=== PATIENT | male | born 1990 | race Caucasian/White ===

== ENCOUNTER 2023-06-30 09:16 | Emergency (ER) | payer OTHER, SELFPAY ==
[2023-06-30] VITALS (7 sets, daily range): BP systolic 119–137; BP diastolic 73–87; PULSE 67–82; RESP 12–22; O2SAT 98–100; BMI 26.9
--- NOTE | 2023-06-30 09:26 | DI.RAD.S_ITS ---
PROCEDURE: XR CHEST 1V INDICATIONS: chest pain TECHNIQUE: One view of the chest was acquired. COMPARISON: None. FINDINGS: Surgical changes and devices: None. Lungs and pleura: Lungs are clear. No pleural effusions or pneumothorax. Mediastinum: Mediastinal contours appear normal. Heart size is normal. Bones and chest wall: No suspicious bony lesions. Overlying soft tissues appear unremarkable. IMPRESSION: No acute cardiopulmonary abnormality is seen. Dictated by: Reinaldo De La O M.D. on 06/30/2023 at 8:42 Approved by: Reinaldo De La O M.D. on 06/30/2023 at 8:42
[2023-06-30 09:49] LABS: PTT Partial Thromboplastin Tim 37 SECONDS (25.1-36.5)
[2023-06-30 09:50] LABS: Add Manual Diff / Slide Review NO; Basophils Absolute Auto 100 /uL (0-100); Basophils Percent Auto 0.9 % (0-2); Eosinophils Absolute Auto 100 /uL (0-450); Eosinophils Percent Auto 1.7 % (2-4); Hematocrit 42.7 % (41-53); Lymphocytes Absolute Auto 2500 /uL (1100-4500); Lymphocytes Percent Auto 33.5 % (25-40); Mean Corpuscular HGB Conc 35.1 % (30-36); Mean Corpuscular Hemoglobin 29.5 PG (26-34); Mean Corpuscular Volume 84.1 fL (80-100); Monocytes Absolute Auto 500 /uL (0-900); Monocytes Percent Auto 7.4 % (3-14); Neutrophils Absolute Auto 4200 /uL (1500-7000); Neutrophils Percent Auto 56.5 % (50-75); Platelet Count 249 X10^3/uL (150-400); Red Blood Cell Count 5.08 X10^6/uL (4.5-5.9); Red Cell Distribution Width 13.1 % (11.6-14.8); White Blood Cell Count 7.4 X10^3/uL (4.5-11.0)
--- NOTE | 2023-06-30 09:56 | ED_ITS ---
HPI - Chest Pain General Chief Complaint: Chest Pain Stated Complaint: t-1 heart palpatations Time Seen by Provider: 06/30/23 09:18 Source: patient Mode of arrival: Ambulatory Limitations: no limitations History of Present Illness HPI narrative: 33-year-old male with no reported past medical history presents with 1 week of intermittent palpitations. Patient states that he has been seen twice by medics on [facility] for these palpitations, but no abnormalities were found. He states that yesterday they seemed really intense any felt faint like he was going to pass out, so decided to present today for evaluation. He states that he recently stopped drinking alcohol and using cannabis. Denies family history of heart disease or thyroid disease. Related Data Previous Rx's Medication Instructions Recorded diclofenac sodium 1 % topical gel 4 g topical QID #100 grams 09/08/22 (Voltaren Arthritis Pain) Allergies Allergy/AdvReac Type Severity Reaction Status Date / Time No Known Drug Allergies Allergy Unverified 03/15/23 16:17 Review of Systems Review of Systems Narrative: Negative except as noted above Patient History Surgical History Broken wrist (~07/2007) Social History Smoking Status: Former smoker Smoking Status: Former smoker alcohol intake frequency: 0-2 drinks per day Substance Use Type: does not use Exam Initial Vital Signs Initial Vital Signs: Vital Signs Pulse Rate 82 06/30/23 09:24 Pulse Oximetry 100 06/30/23 09:24 Const: Awake, alert, no acute distress, nontoxic appearing Cardiac: regular rate, regular rhythm RESP: unlabored, clear bilaterally, no wheezing GI: Soft, nontender, nondistended, no rebound, no guarding MSK: Atraumatic, full range of motion, pulses equal Skin: Warm, Dry, intact, no rashes Neuro: AO x3, CN II-XII grossly intact, moves all extremities Course Orders Ordered: Discontinued Medications Aspirin (Aspirin 81 Mg Chew Tab) 324 mg PO NOW ONE Stop: 06/30/23 09:26 Last Admin: 06/30/23 10:39 Dose: Not Given Documented By: RLS Vital Signs Vital signs: Vital Signs - 8 hr 06/30/23 09:24 06/30/23 09:25 06/30/23 09:25 Pulse Rate 82 74 Respiratory Rate 18 Blood Pressure 124/73 Pulse Oximetry 100 100 Oxygen Delivery Method Room Air 06/30/23 09:30 06/30/23 09:30 06/30/23 09:34 Pulse Rate 77 72 Respiratory Rate 17 12 Blood Pressure 137/87 137/87 Pulse Oximetry 100 100 Oxygen Delivery Method Room Air 06/30/23 10:00 06/30/23 10:00 06/30/23 10:30 Pulse Rate 67 Respiratory Rate 16 Blood Pressure 119/76 123/81 Pulse Oximetry 99 Oxygen Delivery Method 06/30/23 10:30 06/30/23 11:00 06/30/23 11:00 Pulse Rate 69 69 Respiratory Rate 12 22 Blood Pressure 119/84 Pulse Oximetry 98 98 Oxygen Delivery Method MDM - Chest Pain Differential Diagnosis Differential diagnosis: Likely fracture of rib, pneumothorax and stable angina Lab Data 06/30/23 09:28 06/30/23 09:28 Labs: Lab Results 06/30/23 Range/Units 09:28 WBC 7.4 (4.5-11.0) X10^3/uL RBC 5.08 (4.5-5.9) X10^6/uL Hgb 15.0 (13.5-17.5) g/dL Hct 42.7 (41-53) % MCV 84.1 (80-100) fL MCH 29.5 (26-34) PG MCHC 35.1 (30-36) % RDW 13.1 (11.6-14.8) % Plt Count 249 (150-400) X10^3/uL Neut % (Auto) 56.5 (50-75) % Lymph % (Auto) 33.5 (25-40) % [place] % (Auto) 7.4 (3-14) % Eos % (Auto) 1.7 L (2-4) % Baso % (Auto) 0.9 (0-2) % Neut # (Auto) 4200 (7581-3958) /uL Lymph # (Auto) 2500 (1702-1078) /uL [place] # (Auto) 500 (0-900) /uL Eos # (Auto) 100 (0-450) /uL Baso # (Auto) 100 (0-100) /uL PT 11.0 (9.4-12.5) SECONDS INR 1.0 (0.9-1.3) APTT 37 H (25.1-36.5) SECONDS Sodium 140 (137-145) mmol/L Potassium 4.0 (3.4-5.1) mmol/L Chloride 105 (98-107) mmol/L Carbon Dioxide 25 (22-32) mmol/L BUN 8 L (9-20) mg/dL Creatinine 0.89 (0.66-1.25) mg/dL Estimated GFR > 60 (>60) mL/min BUN/Creatinine Ratio 9.0 (6-22) Glucose 98 (70-100) mg/dL Calcium 9.7 (8.4-10.2) mg/dL Magnesium 2.1 (1.6-2.3) mg/dL Total Bilirubin 0.8 (0.2-1.3) mg/dL AST 26 (17-59) IU/L ALT 23 (<50) IU/L Alkaline Phosphatase 62 (38-126) U/L Total Creatine Kinase 124 (55-170) U/L Troponin I < 0.012 (0.01-0.034) ng/mL Total Protein 8.1 (6.3-8.2) g/dL Albumin 4.8 (3.5-5.0) g/dL Globulin 3.3 (1.7-4.1) g/dL Albumin/Globulin Ratio 1.5 (1.0-2.8) Lipase 123 (23-300) U/L TSH 3.52 (0.47-4.68) uIU/mL Imaging Data Chest x-ray: Radiologist's Impression: PROCEDURE: XR CHEST 1V INDICATIONS: chest pain TECHNIQUE: One view of the chest was acquired. COMPARISON: None. FINDINGS: Surgical changes and devices: None. Lungs and pleura: Lungs are clear. No pleural effusions or pneumothorax. Mediastinum: Mediastinal contours appear normal. Heart size is normal. Bones and chest wall: No suspicious bony lesions. Overlying soft tissues appear unremarkable. IMPRESSION: No acute cardiopulmonary abnormality is seen. Dictated by: Reinaldo De La O M.D. on 06/30/2023 at 8:42 Approved by: Reinaldo De La O M.D. on 06/30/2023 at 8:42 ECG Data Interpretation: Normal sinus rhythm at 72 beats per minute. Normal [place], no ST T wave changes, no STEMI MDM Narrative Medical decision making narrative: Several months of intermittent palpitations, worse in the last week, and even worse yesterday. EKG is normal sinus rhythm, however while on quality assurance monitor chassis patient will occasionally have a PVC, which I believe is a likely source of patient's palpitations. Laboratory work, x-ray imaging ordered. Laboratory work is unremarkable, there are no electrolyte abnormalities, troponin is undetectable. Thyroid levels within normal limits. Cardiac monitoring reviewed from patient's stay in the emergency department, he does have occasional PVCs, however overall his PVC burden is quite low and not consecutive. Patient informed of all lab and imaging findings, he was informed of his PVCs and recommended initial conservative measures including decreasing caffeine intake, continuing to see so alcohol, getting plenty of sleep, and avoiding stress if possible. Patient advised to follow up with his primary care physician and discuss about possibility of Holter monitor if he continues to feel symptomatic and/or has increasing palpitations. ED return precautions discussed at bedside. Patient expressed understanding of the plan and is in agreement at this time. All questions answered at the time of discharge. Discharge Plan Departure Patient Disposition: Home Clinical Impression: Palpitations, Premature ventricular contraction Instructions: Premature Ventricular Beats, DI for Palpitations Activity Restrictions/Additional Instructions: Your laboratory work including electrolytes and thyroid function were normal today. On the quality assurance monitor chassis I did see that you would occasionally have something called a PVC, which can cause palpitations. These are generally not harmful but if you are continuing to experience symptoms I recommend following up with your primary care doctor to talk about if medications are needed. Continue to avoid alcohol, make sure to get plenty of sleep, and decrease your caffeine intake as these can worsen palpitations and PVCs. Prescriptions: No Action diclofenac sodium [Voltaren Arthritis Pain] 1 % gel 4 g topical QID Qty: 100 0RF Rx Instructions: apply to single knee, ankle, foot; for foot includes sole/toes/top of foot Referrals: Austyn Morales MD [Physician] - Addie Thomas PA-C [Primary Care Provider] - Stand Alone Forms: Patient Portal/API
[2023-06-30 10:02] LABS: Alanine Aminotransferase 23 IU/L (<50); Albumin 4.8 g/dL (3.5-5.0); Albumin Globulin Ratio 1.5 (1.0-2.8); Alkaline Phosphatase 62 U/L (38-126); Aspartate Aminotransferase 26 IU/L (17-59); Bilirubin Total 0.8 mg/dL (0.2-1.3); Blood Urea Nitrogen 8 mg/dL (9-20); Calcium 9.7 mg/dL (8.4-10.2); Carbon Dioxide 25 mmol/L (22-32); Chloride 105 mmol/L (98-107); Creatine Kinase 124 U/L (55-170); Estimated Glomerular Filt Rate > 60 mL/min (>60); Globulin 3.3 g/dL (1.7-4.1); Glucose 98 mg/dL (70-100); HEMOLYSIS < 15 (0-50); Lipase 123 U/L (23-300); Magnesium 2.1 mg/dL (1.6-2.3); Sodium 140 mmol/L (137-145); Total Protein 8.1 g/dL (6.3-8.2)
[2023-06-30 10:13] LABS: Troponin I < 0.012 ng/mL (0.01-0.034)
[2023-06-30 10:53] LABS: Thyroid Stimulating Hormone 3.52 uIU/mL (0.47-4.68)
== END 2023-06-30 11:12 | disposition home or self-care (01) ==
PROVIDERS: Emergency Medicine; Emergency Provider Emergency Medicine; PCP Physician Assistant Medical
DX: R00.2 Palpitations (principal); I49.3 Ventricular premature depolarization; R07.9 Chest pain, unspecified
CPT/HCPCS: 36415; 71045; 80053; 82550; 83690; 83735; 84443; 84484; 85025; 85610; 85730; 93005; 99283; 99284